=== PATIENT | male | born 1960 | race Caucasian/White ===

== ENCOUNTER 2019-04-23 13:43 | Emergency (ER) | payer BC ==
[2019-04-23 14:02] VITALS: BP 149/77
--- NOTE | 2019-04-23 14:07 | UC ---
Throat Pain/Nasal Maxx HPI - History of Current Complaint Chief Complaint: UCGeneralIllness Stated Complaint: SINUS ISSUE Pain Intensity: 0 - Allergies/Home Medications Allergies/Adverse Reactions: Allergies Allergy/AdvReac Type Severity Reaction Status Date / Time No Known Allergies Allergy Verified 04/23/19 14:03 Home Medications: Home Medications Dorzolamide HCl/Pf [Dorzolamide 2% Eye Drop] 1 drop BOTH EYES DAILY 04/23/19 [ History Confirmed 04/23/19] Finasteride (ALOPECIA) (NF) [Propecia (NF)] 1 tab PO DAILY WITH MEAL 04/23/19 [ History Confirmed 04/23/19] Tamsulosin CAP* [Flomax CAP*] 1 cap PO DAILY WITH MEAL 04/23/19 [History Confirmed 04/23/19] PMH/Surg Hx/FS Hx/Imm Hx - Social History Alcohol Use: None Substance Use Type: None Smoking Status (MU): Never Smoked Tobacco Physical Exam Vital Signs: Initial Vital Signs Temp 99.1 F 04/23/19 13:57 Pulse 75 04/23/19 13:57 Resp 18 04/23/19 13:57 BP 149/77 04/23/19 13:57 Pulse Ox 100 04/23/19 13:57 Discharge ED - Discharge Plan Referrals: Noelle Neal PA [Primary Care Provider] -
--- NOTE | 2019-04-23 14:32 | UC ---
Substance Abuse HPI - HPI Summary HPI Summary: 58-year-old male comes in with a chief complaint of sinus irritation. And February 2019 patient had cold symptoms and ever since then he's been having problems with dry nasal mucosa. Been using saline nasal spray and another over- the-counter moisturizing nasal spray. Though sprays and also cold air help with the symptoms. Quite often laying down at bedtime makes symptoms worse. The fevers or chills no rhinorrhea. Patient reports he's had these symptoms in the past after having a cold. He reports that he seen an ear nose and throat doctor in the past and had nasal endoscopy and sinus CT of the past without any significant findings or relief. - History Of Current Complaint Chief Complaint: UCGeneralIllness Stated Complaint: SINUS ISSUE Time Seen by Provider: 04/23/19 14:07 - Allergies/Home Medications Allergies/Adverse Reactions: Allergies Allergy/AdvReac Type Severity Reaction Status Date / Time No Known Allergies Allergy Verified 04/23/19 14:03 Home Medications: Home Medications Dorzolamide HCl/Pf [Dorzolamide 2% Eye Drop] 1 drop BOTH EYES DAILY 04/23/19 [ History Confirmed 04/23/19] Finasteride (ALOPECIA) (NF) [Propecia (NF)] 1 tab PO DAILY WITH MEAL 04/23/19 [ History Confirmed 04/23/19] Tamsulosin CAP* [Flomax CAP*] 1 cap PO DAILY WITH MEAL 04/23/19 [History Confirmed 04/23/19] PMH/Surg Hx/FS Hx/Imm Hx Previously Healthy: Yes - BPH - Family History Known Family History: Positive: Non-Contributory - Social History Alcohol Use: None Substance Use Type: None Smoking Status (MU): Never Smoked Tobacco Review of Systems All Other Systems Reviewed And Are Negative: Yes Constitutional: Positive: Other - SEE HPI Skin: Positive: Negative Eyes: Positive: Negative ENT: Positive: Other - SEE HPI Respiratory: Positive: Negative Cardiovascular: Positive: Negative Gastrointestinal: Positive: Negative Motor: Positive: Negative Neurovascular: Positive: Negative Musculoskeletal: Positive: Negative Neurological: Positive: Negative Psychological: Positive: Negative Is Patient Immunocompromised?: No Physical Exam Triage Information Reviewed: Yes Appearance: Well-Appearing, No Pain Distress, Well-Nourished Vital Signs: Initial Vital Signs Temp 99.1 F 04/23/19 13:57 Pulse 75 04/23/19 13:57 Resp 18 04/23/19 13:57 BP 149/77 04/23/19 13:57 Pulse Ox 100 04/23/19 13:57 Vital Signs Reviewed: Yes Eye Exam: Normal Eyes: Positive: Conjunctiva Clear ENT: Positive: Pharynx normal, TMs normal. Negative: Nasal congestion, Nasal drainage Neck: Positive: Supple Respiratory: Positive: Lungs clear, Normal breath sounds, No respiratory distress Cardiovascular: Positive: RRR Musculoskeletal: Positive: Strength Intact, ROM Intact Neurological: Positive: Alert, Muscle Tone Normal Psychological: Positive: Age Appropriate Behavior Skin Exam: Normal Substance Abuse Course/Dx - Course Course Of Treatment: No obvious signs of infectious sinusitis. Patient wonders if it's allergic rhinorrhea sinusitis. I prescribed Flonase and patient follow-up with ENT if not improved. - Differential Dx/Diagnosis Provider Diagnosis: Rhinosinusitis Discharge ED - Sign-Out/Discharge Documenting (check all that apply): Patient Departure All imaging exams completed and their final reports reviewed: No Studies - Discharge Plan Condition: Stable Disposition: HOME Prescriptions: Fluticasone NASAL SPRAY 50MCG* [Flonase NASAL SPRAY 50MCG*] 2 spray BOTH NARES DAILY #1 btl Patient Education Materials: Rhinosinusitis (ED) Referrals: Noelle Neal PA [Primary Care Provider] - Additional Instructions: FOLLOW UP WITH YOUR DOCTOR IF NOT COMPLETELY IMPROVED. GET REEVALUATED SOONER IF NOT IMPROVED OR WORSE OR ANY QUESTIONS OR CONCERNS. - Billing Disposition and Condition Condition: STABLE Disposition: Home
== END 2019-04-23 14:54 | disposition home or self-care (01) ==
LOC: UCEAST 13:43
DX: J32.9 Chronic sinusitis, unspecified (principal); N40.0 Benign prostatic hyperplasia without lower urinary tract symptoms; Z79.899 Other long term (current) drug therapy
CPT/HCPCS: 99212; G0463